=== PATIENT | female | born 1950 | race Two or more races ===

== ENCOUNTER 2019-08-14 15:50 | Emergency (ER) | payer OTHER ==
[~2019-08-14] VITALS: Ht 157.5 cm; Wt 52.2 kg
[2019-08-14] MEDS ORDERED: SYNTHROID100 MCG (16:10)
[2019-08-14] MEDS ORDERED: INDERAL LA80 MG (16:10)
[2019-08-14] MEDS ORDERED: ARIMIDEZ (16:10)
== END 2019-08-14 18:59 | disposition home or self-care (01) ==
LOC: ER 15:50
DX: S01.02XA Laceration with foreign body of scalp, initial encounter (principal); W18.09XA Striking against other object with subsequent fall, initial encounter; Y93.89 Activity, other specified; Y92.098 Other place in other non-institutional residence as the place of occurrence of the external cause; Y99.8 Other external cause status

== ENCOUNTER → 2020-06-20 | Emergency (ER) | payer OTHER ==
[~2020-06-20] VITALS: Ht 160 cm; Wt 45.4 kg
[~2020-06-20] MED LIST: ARIMIDEZ; INDERAL LA80 MG; SYNTHROID100 MCG
== END | disposition designated cancer center or children's hospital (05) ==
LOC: ER 09:08
DX: F10.24 Alcohol dependence with alcohol-induced mood disorder (principal); F32.89 Other specified depressive episodes; T51.0X4A Toxic effect of ethanol, undetermined, initial encounter; K29.20 Alcoholic gastritis without bleeding; I12.9 Hypertensive chronic kidney disease with stage 1 through stage 4 chronic kidney disease, or unspecified chronic kidney disease; N18.4 Chronic kidney disease, stage 4 (severe); Y90.9 Presence of alcohol in blood, level not specified

== ENCOUNTER 2020-07-01 09:17 | Outpatient (CLI) | payer OTHER | END 2020-07-01 09:34 | disposition home or self-care (01) | LOC: RAD 09:17 | PROVIDERS: ATTEND Internal Medicine Cardiovascular Disease | DX: I63.50 Cerebral infarction due to unspecified occlusion or stenosis of unspecified cerebral artery (principal); R10.84 Generalized abdominal pain | CPT/HCPCS: 70551 ==

== ENCOUNTER → 2023-02-24 | Emergency (ER) | payer OTHER ==
[~2023-02-24] VITALS: Ht 233.7 cm; Wt 51.3 kg
[~2023-02-24] MED LIST changes: +ANASTROZOLE1 MG PO; +ATORVASTATIN CA20 MG PO; +FOLIC ACID0.8 M1; +LEVOTHYROXINE125 MCG PO; +SERTRALINE HCL25 MG PO; +THIAMINE HCL100 MG PO
== END | disposition home or self-care (01) ==
LOC: ER 10:05
DX: S22.31XA Fracture of one rib, right side, initial encounter for closed fracture (principal); R07.81 Pleurodynia